=== PATIENT | female | born 1990 | race Caucasian/White ===

== ENCOUNTER → 2021-05-15 | Day surgery (SDC) | payer OTHER ==
[~2021-05-15] VITALS: Ht 162.6 cm; Wt 65.8 kg
[2021-05-15 07:29] LABS: HCG (URINE) SCREEN NEGATIVE (NEGATIVE)
[2021-05-15 07:48] LABS: BASOPHIL 0.6 % (0-2); EOSINOPHIL 2.3 % (0-5); HCT 45.4 % (37.0-47.0); HGB 15.5 g/dl (12.5-16.0); LYMPHOCYTE 30.6 % (15-48); MCH 33.3 pg (25.0-31.0); MCHC 34.1 g/dL (32.0-36.0); MCV 97.6 fL (78.0-100.0); MONOCYTE 11.5 % (0-12); MPV 12.1 fL (6.0-9.5); NEUTROPHIL 54.7 % (41-80); NRBC 0; PLT 271 K/uL (150-400); RBC 4.65 M/uL (4.20-5.40); RDW 12.8 % (11.5-14.0)
== END | disposition home or self-care (01) ==
LOC: FAS 07:05
PROVIDERS: Oral & Maxillofacial Surgery
DX: K02.9 Dental caries, unspecified (principal); K04.7 Periapical abscess without sinus
CPT/HCPCS: D7140; D7210; 36415; 84703; 85025; J1100; J1170; J2250; J2405; J2704; J3010; J7120